=== PATIENT | female | born 1975 | race Caucasian/White ===

== ENCOUNTER 2024-06-30 06:58 | Day surgery (SDC) | payer BC ==
[2024-06-30] MEDS ORDERED: fentaNYL 100 MCG/2 ML SDV IV ONE (06:59)
[2024-06-30] MEDS ORDERED: Midazolam 1 MG/ML 2 ML SDV IV ONE (06:59)
[2024-06-30] MEDS: Dextrose 5%-0.45% NaCl 1,000 ML IV SCH (07:21)
[2024-06-30] MEDS ORDERED: Midazolam 1 MG/ML 2 ML SDV ONE (07:45)
[2024-06-30] MEDS ORDERED: fentaNYL 100 MCG/2 ML SDV ONE (07:45)
[2024-06-30] MEDS: fentaNYL 100 MCG/2 ML SDV IV ONE ×2 (08:31→08:32)
[2024-06-30] MEDS: Midazolam 1 MG/ML 2 ML SDV IV ONE ×5 (08:32→08:38)
== END 2024-06-30 10:10 | disposition home or self-care (01) ==
LOC: DL.ENDO 06:58
PROVIDERS: ATTEND Internal Medicine Gastroenterology
DX: Z12.11 Encounter for screening for malignant neoplasm of colon (principal); I10 Essential (primary) hypertension; E78.5 Hyperlipidemia, unspecified; Z88.8 Allergy status to other drugs, medicaments and biological substances; Z91.040 Latex allergy status
CPT/HCPCS: J2250; J3010; J7799